=== PATIENT | female | born 1955 | race African-American/Black ===

== ENCOUNTER 2016-11-04 22:06 | Inpatient (IN) | payer OTHER ==
[~2016-11-04] VITALS: Ht 152.4 cm; Wt 107.0 kg
[~2016-11-04 22:06] MED LIST: FERROUS SULFAT325 MG PO; FLOVENT DISKUS1 DISK IH; HYDROCHLOROTH12.5 M3 PO; NAPROXEN500 MG PO; PEPCID40 MG PO; PROAIR RESPICL90 MCG IH; ZYRTEC10 M2 PO
[2016-11-05 06:01] VITALS: BP 124/78
[2016-11-05 12:04] VITALS: BP 147/81
[2016-11-05 12:31] VITALS: BP 99/49
[2016-11-05 17:10] VITALS: BP 124/85
[2016-11-05 19:33] VITALS: BP 109/64
[2016-11-05 23:18] VITALS: BP 114/69
[2016-11-06 07:22] LABS: MCV 88.8 FL (83-99)
[2016-11-06 07:41] VITALS: BP 136/75
[2016-11-06 07:48] LABS: ANION GAP 9 MEQ/L (2-14); CHLORIDE 99 MEQ/L (99-109); GFR ESTIMATE (CALCULATED) > 59 mL/min/; GLUCOSE 110 mg/dL (70-99); POTASSIUM 3.9 MEQ/L (3.7-5.4); SAMPLE HEMOLYSIS CHECK 0; SAMPLE ICTERIC CHECK 0; SAMPLE LIPEMIA CHECK 0; SODIUM 138 MEQ/L (136-147); UREA NITROGEN (BUN) 15 mg/dL (9-23)
[2016-11-06 15:28] VITALS: BP 112/62
[2016-11-07 00:13] VITALS: BP 119/63
[2016-11-07 08:35] VITALS: BP 127/66
[2016-11-07 09:19] LABS: HEMATOCRIT 37.1 % (36.0-46.0); MCV 87.9 FL (83-99)
[2016-11-07] MEDS ORDERED: SENNA PLUS TAB1 EACH PO (10:31)
[2016-11-07] MEDS ORDERED: OXYCODONE HCL5 MG PO (10:32)
[2016-11-07] MEDS ORDERED: ELIQUIS2.5 MG PO (10:32)
[2016-11-07 17:03] VITALS: BP 125/71
[2016-11-08 00:14] VITALS: BP 109/55
[2016-11-08 07:27] VITALS: BP 129/75
[2016-11-08 15:14] VITALS: BP 127/96
== END 2016-11-08 16:34 | DRG 470 ==
LOC: ENRESERV 22:06 → 3EAST 11-05 05:07 → 2SOUTH 11-05 05:07 → ENRESERV 11-05 09:19 → 3EAST 11-05 11:16 → 2SOUTH 11-05 12:37 → SDC 11-05 15:02 → EDSTATUS 11-05 15:11 → 2SOUTH 11-05 15:13 → 3EAST 11-08 16:34
PROVIDERS: Orthopaedic Surgery
PROC: 0SRD0J9 Replacement of Left Knee Joint with Synthetic Substitute, Cemented, Open Approach (ICD-10-PCS; principal; 2016-11-05)
DX: M17.12 Unilateral primary osteoarthritis, left knee (principal); Z68.42 Body mass index [BMI] 45.0-49.9, adult; F33.9 Major depressive disorder, recurrent, unspecified; E66.9 Obesity, unspecified; J44.9 Chronic obstructive pulmonary disease, unspecified; J45.909 Unspecified asthma, uncomplicated; K21.9 Gastro-esophageal reflux disease without esophagitis; I10 Essential (primary) hypertension; Z88.0 Allergy status to penicillin; Z83.3 Family history of diabetes mellitus; Z88.2 Allergy status to sulfonamides; Z80.3 Family history of malignant neoplasm of breast; Z80.1 Family history of malignant neoplasm of trachea, bronchus and lung; Z82.49 Family history of ischemic heart disease and other diseases of the circulatory system
CPT/HCPCS: 71010; 80048; 85014; 85018; 94640; 94640 76; 97530 GO; 97530 GP; C1713; J0131; J1100; J1170; J1885; J2250; J2405; J3010; J7050; J7120; L1820; Q0175; S0020